=== PATIENT | male | born 1990 | race Caucasian/White ===

== ENCOUNTER → 2025-01-30 09:38 | Outpatient (CLI) | payer OTHER, SELFPAY ==
--- NOTE | 2025-01-30 10:52 | DI.MRI.S_ITS ---
PROCEDURE: MR SHOULDER RT WO CON INDICATIONS: RIGHT SHOULDER PAIN TECHNIQUE: Noncontrast oblique coronal T2 fast spin echo with fat saturation, oblique sagittal T1 spin echo and T2 fast spin echo with fat saturation, axial T1 spin echo and T2 fast spin echo with fat saturation through the shoulder. COMPARISON: None. FINDINGS: Image quality: Excellent. Rotator cuff: Low-grade bursal surface partial-thickness tear involving distal supraspinatus at its insertion on the humeral head is seen extending to musculotendinous junction. Distal infraspinatus tendinosis is noted. The subscapularis tendon is intact. No full-thickness rotator cuff tendon rupture. Sagittal images demonstrate no significant rotator cuff muscle atrophy. Bones and bursae: No bone marrow contusions or fractures. Mild to moderate acromioclavicular joint osteoarthritic changes are seen with joint space narrowing and downward osteophyte formation depressing on musculotendinous junction of supraspinatus. Type 2 acromion without an os acromiale. Small to moderate amount of subacromial subdeltoid bursal fluid is seen, no loose bodies. Capsule and soft tissues: Subtle signal abnormality and fraying involving superior anterior glenoid labrum at 12 to 1 o'clock position is seen suggestive of superior anterior labral tear. The long head of the biceps tendon demonstrates normal location and morphology. The rotator interval appears normal, without fibrosis. The coracohumeral ligament is normal in thickness. IMPRESSION: 1. Low-grade bursal surface partial-thickness tear involving distal supraspinatus extending to musculotendinous junction. Distal infraspinatus tendinosis. No full-thickness rotator cuff tendon rupture. 2. [id number] acromioclavicular joint osteoarthritis. No fracture or dislocation. Small to moderate amount of subacromial subdeltoid bursal fluid, no loose bodies. 3. Finding is suggestive of subtle superior anterior glenoid labral tear at 12 to 1 o'clock position. Dictated by: Lanre Hemphill M.D. on 01/31/2025 at 16:47 Approved by: Lanre Hemphill M.D. on 01/31/2025 at 16:50
== END ==
PROVIDERS: Referring Provider Student in an Organized Health Care Education/Training Program; Visit Provider Student in an Organized Health Care Education/Training Program
DX: M19.011 Primary osteoarthritis, right shoulder (principal); M75.111 Incomplete rotator cuff tear or rupture of right shoulder, not specified as traumatic; M25.511 Pain in right shoulder
CPT/HCPCS: 73221

== ENCOUNTER → 2025-03-29 16:47 | Outpatient (CLI) | payer OTHER, SELFPAY ==
--- NOTE | 2025-03-29 16:49 | DI.MRI.S_ITS ---
PROCEDURE: MR KNEE RT WO CON INDICATIONS: RT KNEE PAIN TECHNIQUE: Noncontrast sagittal PD fast spin echo and T2 fast spin echo with fat saturation, sagittal 3-D FLASH with fat saturation; coronal T1 spin echo and PD fast spin echo with fat saturation, and axial PD fast spin echo with fat saturation through the knee. COMPARISON: None. FINDINGS: Image quality: Excellent. Menisci: The medial and lateral menisci demonstrate normal morphology and internal signal. The meniscal root ligaments appear intact. Cruciate ligaments: Mild increased T2 weighted signal and thinning of the distal anterior cruciate ligament but with intact fibers without complete tear or retraction. Posterior cruciate ligament is normal. Medial structures: The medial collateral ligament appears intact. The semimembranosus tendon insertions and meniscocapsular junction appear intact. Visualized portions of the pes anserinus tendons appear normal. No abnormal bursal fluid. Lateral structures: The lateral collateral ligament, long and short heads of the biceps femoris tendon appear intact. The popliteus tendon appears normal. Iliotibial band appears normal. Anterior structures: Mild nonspecific edema in the infrapatellar fat pad most notably adjacent to the proximal attachment of the patellar ligament. Patella bharat configuration on the axial images the patella is mildly subluxed laterally suggests an element of patellar tracking instability. The quadriceps and patellar tendons otherwise appear intact. Bones and cartilage: Moderate to severe irregularity with several 1 mm-3 mm cartilage defects in the medial and lateral patellar facets with underlying subchondral edema . Mild diffuse cartilaginous thinning in the medial and lateral compartments without focal cartilage defect. No gross evidence of intra-articular loose body. Joint space: Moderate to large knee joint effusion. Minimal 1 cm popliteal cyst. 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 Moderate to large knee joint effusion. Lateral subluxation of the patella as discussed above. Other findings as above. Dictated by: Stephan Beck M.D. on 03/30/2025 at 10:51 Approved by: Stephan Beck M.D. on 03/30/2025 at 11:02
== END ==
DX: S83.011A Lateral subluxation of right patella, initial encounter (principal); M25.561 Pain in right knee; M22.41 Chondromalacia patellae, right knee; M25.461 Effusion, right knee
CPT/HCPCS: 73721